=== PATIENT | male | born 1940 | race Caucasian/White ===

== ENCOUNTER 2019-11-25 11:41 | Outpatient (CLI) | payer MEDICARE, SELFPAY ==
--- NOTE | ~2019-11-25 | XR_ITS ---
EXAMINATION: XR chest 2V DATE: 11/25/2019 12:49 INDICATION: Shortness of breath TECHNIQUE: PA and lateral views of the chest are obtained. COMPARISON: 07/14/2019 FINDINGS: A left internal jugular Port-A-Cath ends with its tip in the proximal right atrium. There a re airspace opacities of the right lung base. Trace pleural effusions are suggested. There is no pneu mothorax. The cardiomediastinal silhouette is stable. There are bridging osteophytes at multiple leve ls in the spine, consistent with diffuse idiopathic skeletal hyperostosis (DISH). IMPRESSION: 1. Right basilar airspace opacities, consistent with atelectasis versus pneumonia. Reviewed, dictated and finalized at location A. NSIC ENGINEER IMPRESSION: 1. Right basilar airspace opacities, consistent with atelectasis versus pneumon ia.
--- NOTE | 2019-11-25 12:29 | ECG_ITS ---
Measurements Intervals [place] Rate: 53 P: PA: 0 QRS: -61 QRSD: 122 T: 84 QT: 469 QTc: 441 Interpretive Statements SINUS BRADYCARDIA WITH FIRST DEGREE AV BLOCK LEFT AXIS DEVIATION RIGHT BUNDLE BRANCH BLOCK ST-T WAVE ABNORMALITY IN ANTEROLATERAL LEADS- CONSIDER ISCHEMIA BASELINE ARTIFACT- I, II, III, AVL, AVF ABNORMAL ECG Electronically Signed On 11-25-2019 14:02:55 MARKETING ASSOCIATE by Russel Pérez D.O.
== END 2019-11-25 11:42 | disposition home or self-care (01) ==
LOC: CHSIMG 11:48
PROVIDERS: PCP Internal Medicine; Visit Provider Internal Medicine
DX: R06.00 Dyspnea, unspecified (principal)
CPT/HCPCS: 71046; 93005

== ENCOUNTER 2019-12-09 07:35 | Outpatient (CLI) | payer MEDICARE, SELFPAY | END 2019-12-09 07:36 | disposition home or self-care (01) | PROVIDERS: PCP Internal Medicine; Visit Provider Specialist | DX: R06.02 Shortness of breath (principal); I25.10 Atherosclerotic heart disease of native coronary artery without angina pectoris | CPT/HCPCS: 78452; 93017; A9502; J2785 ==

== ENCOUNTER 2019-12-16 11:50 | Outpatient (CLI) | payer MEDICARE, SELFPAY | END 2019-12-16 11:51 | disposition home or self-care (01) | LOC: CHSIMG 11:52 | PROVIDERS: PCP Internal Medicine; Visit Provider Specialist | DX: R06.02 Shortness of breath (principal); I25.10 Atherosclerotic heart disease of native coronary artery without angina pectoris | CPT/HCPCS: C8929 ==